=== PATIENT | female | born 1995 | race American Indian/Alaskan Native ===

== ENCOUNTER 2020-07-20 11:50 | Outpatient (CLI) | payer MEDICAID ==
[2020-07-20] MEDS ORDERED: LACTATED RINGERS 1,000 ML IV SCH (13:00)
[2020-07-20 13:50] LABS: Hematocrit 31.2 % (30.3-42.9); Hemoglobin 10.8 gm/dl (10.1-14.3); Mean Corpuscular HGB Conc 35 % (30-34); Mean Corpuscular Volume 87 fl (79-97); Platelet Count 242 K/mm3 (140-440); Red Blood Count 3.58 M/mm3 (3.65-5.03); Red Cell Distribution Width 15.6 % (13.2-15.2)
[2020-07-20 14:03] LABS: Uric Acid 5.8 mg/dL (3.5-7.6)
[2020-07-20 14:05] LABS: Alanine Aminotransferase < 5 units/L (7-56)
[2020-07-20 14:07] LABS: Bacteria,Urine 1+ /HPF (Negative); Bilirubin,Urine NEG (Negative); Blood,Urine NEG (Negative); Color,Urine Yellow (Yellow); Mucus,Urine FEW /HPF; Protein,Urine <15 mg/dL mg/dL (Negative); Urobilinogen,Urine < 2.0 mg/dL (<2.0)
[2020-07-20 14:25] VITALS: BP 136/85
== END 2020-07-20 14:43 | disposition home or self-care (01) ==
LOC: TRG 11:50 → APU 11:51 → TRG 14:43
PROVIDERS: ATTEND Obstetrics & Gynecology
DX: O16.3 Unspecified maternal hypertension, third trimester (principal); O24.419 Gestational diabetes mellitus in pregnancy, unspecified control; J45.909 Unspecified asthma, uncomplicated; Z3A.35 35 weeks gestation of pregnancy
CPT/HCPCS: 36415; 59025; 81001; 82565; 83615; 84450; 84460; 84550; 85027

== ENCOUNTER 2020-07-25 16:08 | Outpatient (CLI) | payer MEDICAID ==
[2020-07-25 17:52] LABS: Basophils % (Auto) 0.7 % (0.0-1.8); Eosinophils % (Auto) 0.6 % (0.0-4.3); Hematocrit 30.9 % (30.3-42.9); Hemoglobin 10.6 gm/dl (10.1-14.3); Lymphocytes # (Auto) 1.1 K/mm3 (1.2-5.4); Lymphocytes % (Auto) 18.3 % (13.4-35.0); Mean Corpuscular HGB Conc 34 % (30-34); Mean Corpuscular Volume 87 fl (79-97); Monocytes # (Auto) 0.3 K/mm3 (0.0-0.8); Monocytes % (Auto) 5.2 % (0.0-7.3); Platelet Count 262 K/mm3 (140-440); Red Blood Count 3.54 M/mm3 (3.65-5.03); Red Cell Distribution Width 15.5 % (13.2-15.2)
[2020-07-25 18:20] LABS: Alanine Aminotransferase 6 units/L (7-56); Uric Acid 5.9 mg/dL (3.5-7.6)
[2020-07-25 18:31] LABS: Bacteria,Urine 1+ /HPF (Negative); Bilirubin,Urine NEG (Negative); Blood,Urine NEG (Negative); Color,Urine Yellow (Yellow); Mucus,Urine 1+ /HPF; Protein,Urine <15 mg/dL mg/dL (Negative); RBC,Urine < 1.0 /HPF (0.0-6.0); Urobilinogen,Urine < 2.0 mg/dL (<2.0)
[2020-07-25 19:33] VITALS: BP 138/76
--- NOTE | 2020-07-25 19:34 | Ultrasound Report ---
ULTRASOUND OBSTETRIC LIMITED ULTRASOUND BIOPHYSICAL PROFILE INDICATION / CLINICAL INFORMATION: well-being. Clinical Gestational Age (GA): 36.0 weeks.days COMPARISON: None available. FINDINGS: BREATHING MOVEMENT = 2 GROSS BODY MOVEMENT = 2 TONE = 2 QUALITATIVE AMNIOTIC FLUID VOLUME = 2 TOTAL BIOPHYSICAL SCORE = 8/8 HEART RATE (beats per minute): 149 AMNIOTIC FLUID INDEX (cm) = 8.7 (normal = 7-24 cm) PRESENTATION: Cephalic. ADDITIONAL FINDINGS: None. IMPRESSION: 1. Biophysical Score = 8/8 2. Normal KATINA of 8.7 cm. Signer Name: Gonsalo Pope MD Signed: 07/25/2020 7:29 PM Workstation Name: [id number]
--- NOTE | 2020-07-25 20:07 | Event Note ---
Date: 07/25/20 (Discussed POC with patient) Pt is a 25 y.o @ 36 wks 36 wks who is being followed by [facility] for GDM. On 07/20 she had an elevated blood pressure at work of 156/100. She was sent to triage where her blood pressures were noted to be 130's/80's with normal labs. She then presented to her office visit with BP's noted to be 140's/90's, pt at that time denied WU, blurred vision, spots before her eyes, chest pain, shortness of breath, and upper abdominal pain. She was instructed on how to collect a 24 hr urine sample and it resulted on 07/24 as 470. She was called at that time and a message was left, but pt did not answer. Today she was called, she answered and was instructed to come to triage today for serial blood pressures and lab work. BP's in triage today are noted to be in the mild range 140-150's/70-90's. The highest being 153/95. Labs were ordered and resulted WNL. A BPP was ordered today and was 8/8, KATINA 8.9, and her monitor strip was category 1. [address] Tarango and plan is to schedule an IOL @ 37 wks for diagnosis of pre eclampsia. Spoke with Rocio, labor and delivery person, regarding date of IOL on 07/30 @ 830pm as patient will be 37 weeks on early Monday morning. She will add patient to the schedule for the 07/30 @ 830 pm. Spoke with patient regarding diagnosis of pre eclampsia and need for follow up. She has an appointment in the office on 07/28. She was encouraged to keep this appointment. Pt also states that she has a blood pressure cuff at home and we discussed how to properly take a blood pressure while at home. We discussed importance of taking her blood pressure at least once daily at home and if blood pressure is greater than or equal to 160/100 and if she has the following sympto ms with or without the elevated blood pressure: a WU, blurred vision, spots before her eyes, shortness of breath, chest pain, or upper abdominal pain to call the secondary school teacher provider immediately for further instructions and/or report to triage for evaluation. Pt currently denies WU, blurred vision, spots before her eyes, chest pain, shortness of breath, and upper abdominal pain. She was also informed that her IOL would be 07/30 @ 830 pm and she will be called if that date and time changes. She also verbalized understanding that if she has pre eclampsia symptoms that were worsening, severe range blood pressures that her IOL could be sooner than 07/30. Pt also denies vaginal bleeding like a period, ctxs, LOF. There is positive movement. We discussed s/sx of labor and she will call the on-call provider and come to triage for labor evaluation.
== END 2020-07-25 19:44 | disposition home or self-care (01) ==
LOC: TRG 16:08 → APU 16:10 → TRG 19:44
PROVIDERS: ATTEND Obstetrics & Gynecology
DX: Z34.83 Encounter for supervision of other normal pregnancy, third trimester (principal); Z3A.36 36 weeks gestation of pregnancy
CPT/HCPCS: 36415; 76815; 76819; 81001; 82565; 83615; 84450; 84460; 84550; 85025; 86592; 86850; 86900; 86901